=== PATIENT | female | born 1970 | race Caucasian/White ===

== ENCOUNTER 2023-04-27 17:26 | Emergency (ER) | payer SELFPAY ==
[2023-04-27 17:37] VITALS: BP 180/86; PULSE 69
== END 2023-04-27 18:28 ==
LOC: DL.ED 17:26
DX: Z53.21 Procedure and treatment not carried out due to patient leaving prior to being seen by health care provider (principal)

== ENCOUNTER 2024-02-09 10:03 | Emergency (ER) | payer BC | END 2024-02-09 11:50 | disposition home or self-care (01) | LOC: DL.ED 10:03 | DX: S92.512A Displaced fracture of proximal phalanx of left lesser toe(s), initial encounter for closed fracture (principal); I10 Essential (primary) hypertension; Z86.16 Personal history of COVID-19; Z79.899 Other long term (current) drug therapy; Z88.8 Allergy status to other drugs, medicaments and biological substances; W22.8XXA Striking against or struck by other objects, initial encounter | CPT/HCPCS: 73660-T4; 99283 ==